=== PATIENT | male | born 1940 | race Caucasian/White ===

== ENCOUNTER 2019-03-30 07:51 | Outpatient (CLI) | payer MEDICARE | END 2019-03-30 23:59 | disposition home or self-care (01) | LOC: CFH 07:51 | PROVIDERS: ATTEND Internal Medicine | DX: J47.9 Bronchiectasis, uncomplicated (principal); R91.8 Other nonspecific abnormal finding of lung field | CPT/HCPCS: 71250 ==

== ENCOUNTER → 2019-08-25 | Outpatient (CLI) | payer MEDICARE | END | disposition home or self-care (01) | LOC: RAD 10:55 | PROVIDERS: ATTEND Urology | DX: C61 Malignant neoplasm of prostate (principal) | CPT/HCPCS: 78306; A9503 ==

== ENCOUNTER → 2019-10-19 | Outpatient (CLI) | payer MEDICARE ==
[~2019-10-19] MED LIST: GADOTERATE 7.5 MMOL/15 ML SYR ONE
== END | disposition home or self-care (01) ==
LOC: CFH 09:28
PROVIDERS: ATTEND Urology
DX: C79.51 Secondary malignant neoplasm of bone (principal); M53.85 Other specified dorsopathies, thoracolumbar region; D18.09 Hemangioma of other sites
CPT/HCPCS: 72157; 72158; A9575

== ENCOUNTER → 2020-05-22 | Outpatient (CLI) | payer MEDICARE | END | disposition home or self-care (01) | LOC: CFH 09:11 | PROVIDERS: ATTEND Internal Medicine | DX: J47.9 Bronchiectasis, uncomplicated (principal); C61 Malignant neoplasm of prostate; N18.3 Chronic kidney disease, stage 3 (moderate) | CPT/HCPCS: 71250 ==

== ENCOUNTER → 2020-08-30 | Outpatient (CLI) | payer MEDICARE ==
[~2020-08-30] MED LIST changes: -GADOTERATE 7.5 MMOL/15 ML SYR ONE; +OMNIPAQUE 350 MG/ML, 100ML BOTTLE ONE
== END | disposition home or self-care (01) ==
LOC: RAD 07:50
PROVIDERS: ATTEND Urology
DX: C61 Malignant neoplasm of prostate (principal)
CPT/HCPCS: 74177; 78306; A9503; Q9967

== ENCOUNTER 2020-12-21 15:05 | Outpatient (CLI) | payer MEDICARE | END 2020-12-21 23:59 | disposition home or self-care (01) | LOC: CFH 15:05 | PROVIDERS: ATTEND Internal Medicine | DX: M79.661 Pain in right lower leg (principal); M79.662 Pain in left lower leg; R60.0 Localized edema | CPT/HCPCS: 93970 ==

== ENCOUNTER 2021-02-06 14:54 | Inpatient (IN) | payer MEDICARE ==
[~2021-02-06] VITALS: Ht 167.6 cm; Wt 78.0 kg
[2021-02-06] MEDS ORDERED: ASPIRIN 81 MG TABLET CHEW ONE (15:10)
[2021-02-06] MEDS ORDERED: ASPIRIN 81 MG TABLET CHEW PO ONE (15:30)
--- NOTE | 2021-02-06 15:31 | NUR ---
PT BROUGHT BACK TO ROOM FROM TRIAGE VIA WHEELCHAIR. PT CO SOB AND CP STARTING THIS MORNING AROUND 1100. PT STATED THAT HE HAS HAD INTERMITTENT SOB SINCE RECEIVING HIS COVID VACCINATION IN OCTOBER. PT STATED THAT CP IS 4/10. PT HAS OCCASIONAL COUGH, WHICH PT STATED IS BASELINE FOR HIM. PT DENIES ANY FEVER OR N/V.
[2021-02-06 15:41] LABS: ALANINE AMINOTRANSFERASE 20 U/L (12-78); ALBUMIN 3.9 g/dL (3.4-5.0); ANION GAP 8 mmol/L (5-15); CALCIUM 9.6 mg/dL (8.5-10.1); CHLORIDE 105 mmol/L (98-107); CREATININE 1.37 mg/dL (0.7-1.3)
[2021-02-06 15:44] LABS: MEAN CORPUSCULAR HEMOGLOBIN 29.9 pg (27.5-34.5); MEAN CORPUSCULAR HGB CONC 32.9 g/dL (33.2-36.2); MEAN PLATELET VOLUME 9.7 fL (7.4-10.4); PLATELET COUNT 319 x10^3/uL (130-400); RED CELL DISTRIBUTION WIDTH 13.9 % (9.4-14.8)
[2021-02-06 15:45] LABS: ALKALINE PHOSPHATASE 132 U/L (45-117); BILIRUBIN,TOTAL 0.7 mg/dL (0.2-1.0); TOTAL PROTEIN 7.8 g/dL (6.4-8.2); TROPONIN I < 0.015 ng/mL (0.000-0.045)
[2021-02-06 16:05] LABS: MD YES
--- NOTE | 2021-02-06 16:26 | NUR ---
PT RESTING IN RTULE[place] COMFORTABLY. CALL LIGHT WITHIN REACH.
[2021-02-06 16:28] LABS: BAND#(MANUAL) 0.34 x10^3/uL; BANDS%(MANUAL) 1 % (0-7); LYMPH#(MANUAL) 27.62 x10^3/uL (1-3.4); LYMPHS% (MANUAL) 81 % (22-44); MONOS#(MANUAL) 0.68 x10^3/uL (0.3-2.7); MONOS% (MANUAL) 2 % (2-9); SEG#(MANUAL) 5.46 x10^3/uL (1.8-6.8); SEGS% (MANUAL) 16 % (42-75)
[2021-02-06 16:29] LABS: <RBC MORPHOLOGY> NORMAL
[2021-02-06 16:30] LABS: <PLATELET ESTIMATE> ADEQUATE; <PLT MORPHOLOGY> NORMAL PLT MORPH; SMUDGE CELLS 1+
--- NOTE | 2021-02-06 17:17 | NUR ---
spoke with regarding pt request for food. md katerine hicks diet for pt. meal tray ordered.
[2021-02-06] MEDS ORDERED: SODIUM CHLORIDE FLUSH 10ML SYR IVF PRN (17:30)
--- NOTE | 2021-02-06 18:01 | NUR ---
PT SITTING IN [facility]. ATTEMPT TO CALL REPORT TO RN X1.
--- NOTE | 2021-02-06 18:26 | NUR ---
REPORT GIVEN TO MATTHEW GUZMAN.
[2021-02-06] MEDS ORDERED: BISACODYL 10 MG SUPP PR PRN (18:30)
[2021-02-06] MEDS ORDERED: POLYETHYLENE GLYCOL 17 GM PACKET PO PRN (18:30)
[2021-02-06] MEDS ORDERED: VANCOMYCIN PER PHARMACY MC PRN (18:30)
[2021-02-06] MEDS ORDERED: PHARMACOKINETIC MONITORING MC PRN (18:30)
[2021-02-06] MEDS ORDERED: ONDANSETRON ODT 4 MG PO PRN (18:30)
[2021-02-06] MEDS ORDERED: ALBUTEROL/IPRATROPIUM 2.5MG/0.5MG, 3 ML NPPB PRN (19:00)
--- NOTE | 2021-02-06 19:22 | NUR ---
PT TRANSFERRED TO ONCOLOGY BY [facility]
[2021-02-06 19:30] VITALS: BP 105/65
[2021-02-06 20:02] VITALS: BP 105/65
[2021-02-06] MEDS ORDERED: ESOM20CA57 PO (20:31)
[2021-02-06] MEDS ORDERED: FLUT1BLS3 IH (20:31)
[2021-02-06] MEDS ORDERED: LEUP3.75 IM (20:31)
[2021-02-06] MEDS ORDERED: ENZA40CA PO (20:31)
[2021-02-06] MEDS ORDERED: OXYC1TAB14 PO (20:38)
[2021-02-06] MEDS ORDERED: A/C/1TAB PO (20:38)
[2021-02-06] MEDS ORDERED: CALC-709 PO (20:38)
[2021-02-06] MEDS ORDERED: CETI10CA PO (20:38)
[2021-02-06] MEDS ORDERED: TAMS-11 PO (20:38)
[2021-02-06] MEDS ORDERED: DENO120V SQ (20:43)
[2021-02-06] MEDS ORDERED: VANCOMYCIN 1,500 MG in SODIUM CHLORIDE 0.9% 250 ML IV SCH (21:00)
[2021-02-06 21:15] VITALS: BP 115/68
[2021-02-06] MEDS: CEFTRIAXONE 1,000 MG in DEXTROSE 5% 50 ML IVPB SCH (21:27)
[2021-02-06] MEDS: HEPARIN 5,000 UNITS/ML, 1ML SQ SCH (21:27)
[2021-02-07 00:38] VITALS: BP 114/62
[2021-02-07] MEDS: HEPARIN 5,000 UNITS/ML, 1ML SQ SCH ×3 (05:15→20:01)
[2021-02-07] MEDS: ACETAMINOPHEN 325 MG TABLET PO PRN ×3 (05:20→20:01)
[2021-02-07 05:28] LABS: MEAN CORPUSCULAR HEMOGLOBIN 29.9 pg (27.5-34.5); MEAN CORPUSCULAR HGB CONC 33.1 g/dL (33.2-36.2); MEAN PLATELET VOLUME 9.1 fL (7.4-10.4); PLATELET COUNT 283 x10^3/uL (130-400); RED BLOOD COUNT 4.88 x10^6/uL (4.38-5.82); RED CELL DISTRIBUTION WIDTH 13.9 % (9.4-14.8)
[2021-02-07 05:46] LABS: CHLORIDE 106 mmol/L (98-107)
[2021-02-07 05:59] LABS: MD YES
[2021-02-07 06:01] LABS: <PLATELET ESTIMATE> ADEQUATE; <PLT MORPHOLOGY> NORMAL PLT MORPH; <RBC MORPHOLOGY> NORMAL; BAND#(MANUAL) 0.26 x10^3/uL; BANDS%(MANUAL) 1 % (0-7); LYMPH#(MANUAL) 19.65 x10^3/uL (1-3.4); LYMPHS% (MANUAL) 75 % (22-44); MONOS#(MANUAL) 0.26 x10^3/uL (0.3-2.7); MONOS% (MANUAL) 1 % (2-9); SEG#(MANUAL) 6.03 x10^3/uL (1.8-6.8); SEGS% (MANUAL) 23 % (42-75); SMUDGE CELLS 1+
[2021-02-07 06:02] LABS: ANION GAP 5 mmol/L (5-15); CALCIUM 8.8 mg/dL (8.5-10.1); CREATININE 1.47 mg/dL (0.7-1.3)
[2021-02-07 07:39] VITALS: BP 130/72
[2021-02-07] MEDS: SENNA/DOCUSATE TABLET PO SCH (08:43)
[2021-02-07] MEDS: BUDESONIDE 0.5 MG/2 ML INHA INH SCH ×2 (09:00→20:55)
[2021-02-07] MEDS: ALBUTEROL/IPRATROPIUM 2.5MG/0.5MG, 3 ML NPPB SCH ×2 (09:00→20:55)
[2021-02-07 12:55] VITALS: BP 117/68
[2021-02-07] MEDS: SODIUM CHLORIDE 0.9% 1,000 ML IV SCH (18:42)
[2021-02-07] MEDS: CEFTRIAXONE 1,000 MG in DEXTROSE 5% 50 ML IVPB SCH (21:01)
[2021-02-07] MEDS: VANCOMYCIN 1,600 MG in SODIUM CHLORIDE 0.9% 250 ML IV SCH (22:10)
[2021-02-08] MEDS: ACETAMINOPHEN 325 MG TABLET PO PRN ×4 (01:28→19:40)
[2021-02-08 01:51] VITALS: BP 127/72
[2021-02-08 05:19] LABS: MEAN CORPUSCULAR HEMOGLOBIN 30.1 pg (27.5-34.5); MEAN CORPUSCULAR HGB CONC 33.2 g/dL (33.2-36.2); MEAN PLATELET VOLUME 9.7 fL (7.4-10.4); PLATELET COUNT 249 x10^3/uL (130-400); RED CELL DISTRIBUTION WIDTH 14.1 % (9.4-14.8)
[2021-02-08 05:27] LABS: CHLORIDE 111 mmol/L (98-107)
[2021-02-08] MEDS: HEPARIN 5,000 UNITS/ML, 1ML SQ SCH ×3 (05:32→20:30)
[2021-02-08 05:33] LABS: ANION GAP 9 mmol/L (5-15); CALCIUM 7.9 mg/dL (8.5-10.1); CREATININE 0.96 mg/dL (0.7-1.3)
[2021-02-08 05:59] LABS: MD YES
[2021-02-08 06:16] LABS: BAND#(MANUAL) 0.26 x10^3/uL; BANDS%(MANUAL) 1 % (0-7); EOS#(MANUAL) 0.26 x10^3/uL (0.0-0.4); EOS% (MANUAL) 1 % (1-7); LYMPH#(MANUAL) 19.79 x10^3/uL (1-3.4); LYMPHS% (MANUAL) 77 % (22-44); MONOS#(MANUAL) 1.54 x10^3/uL (0.3-2.7); MONOS% (MANUAL) 6 % (2-9); SEG#(MANUAL) 3.86 x10^3/uL (1.8-6.8)
[2021-02-08 06:17] LABS: <RBC MORPHOLOGY> NORMAL; SEGS% (MANUAL) 15 % (42-75)
[2021-02-08 06:18] LABS: <PLATELET ESTIMATE> ADEQUATE; <PLT MORPHOLOGY> NORMAL PLT MORPH; SMUDGE CELLS 2+
[2021-02-08 07:03] VITALS: BP 128/89
[2021-02-08] MEDS: BUDESONIDE 0.5 MG/2 ML INHA INH SCH ×2 (07:33→20:56)
[2021-02-08] MEDS: ALBUTEROL/IPRATROPIUM 2.5MG/0.5MG, 3 ML NPPB SCH ×2 (07:33→20:56)
[2021-02-08] MEDS: SENNA/DOCUSATE TABLET PO SCH ×2 (08:52→17:50)
[2021-02-08] MEDS ORDERED: XTANDI 160 MG PO SCH ×2 (11:00→11:09)
[2021-02-08 12:22] VITALS: BP 125/69
[2021-02-08] MEDS: SODIUM CHLORIDE 0.9% 1,000 ML IV SCH (13:39)
[2021-02-08] MEDS: CEFTRIAXONE 1,000 MG in DEXTROSE 5% 50 ML IVPB SCH (20:31)
[2021-02-08 21:12] VITALS: BP 125/66
[2021-02-08] MEDS: VANCOMYCIN 1,600 MG in SODIUM CHLORIDE 0.9% 250 ML IV SCH (22:09)
[2021-02-09 01:38] VITALS: BP 136/72
[2021-02-09] MEDS: HEPARIN 5,000 UNITS/ML, 1ML SQ SCH ×2 (05:20→12:50)
[2021-02-09] MEDS: ACETAMINOPHEN 325 MG TABLET PO PRN ×2 (05:20→09:40)
[2021-02-09 05:55] LABS: MEAN CORPUSCULAR HEMOGLOBIN 29.9 pg (27.5-34.5); MEAN CORPUSCULAR HGB CONC 32.9 g/dL (33.2-36.2); MEAN PLATELET VOLUME 9.2 fL (7.4-10.4); PLATELET COUNT 276 x10^3/uL (130-400); RED BLOOD COUNT 4.78 x10^6/uL (4.38-5.82); RED CELL DISTRIBUTION WIDTH 14.2 % (9.4-14.8)
[2021-02-09 06:00] LABS: ANION GAP 5 mmol/L (5-15); CALCIUM 7.7 mg/dL (8.5-10.1); CHLORIDE 112 mmol/L (98-107); CREATININE 0.94 mg/dL (0.7-1.3)
[2021-02-09 06:19] LABS: MD YES
[2021-02-09] MEDS: ALBUTEROL/IPRATROPIUM 2.5MG/0.5MG, 3 ML NPPB SCH (06:50)
[2021-02-09] MEDS: BUDESONIDE 0.5 MG/2 ML INHA INH SCH (06:50)
[2021-02-09 07:03] LABS: BAND#(MANUAL) 0.49 x10^3/uL; BANDS%(MANUAL) 2 % (0-7); BASOS#(MANUAL) 0.24 x10^3/uL (0-0.1); BASOS% (MANUAL) 1 % (0-1); LYMPH#(MANUAL) 19.68 x10^3/uL (1-3.4); LYMPHS% (MANUAL) 81 % (22-44); MONOS#(MANUAL) 0.97 x10^3/uL (0.3-2.7); MONOS% (MANUAL) 4 % (2-9); SEG#(MANUAL) 2.92 x10^3/uL (1.8-6.8); SEGS% (MANUAL) 12 % (42-75)
[2021-02-09 07:10] LABS: <PLATELET ESTIMATE> ADEQUATE; <PLT MORPHOLOGY> NORMAL PLT MORPH; <RBC MORPHOLOGY> NORMAL
[2021-02-09 07:40] VITALS: BP 152/72
[2021-02-09] MEDS: SENNA/DOCUSATE TABLET PO SCH (09:40)
[2021-02-09] MEDS ORDERED: DOXY100T PO (12:23)
[2021-02-09] MEDS ORDERED: CEFD300C37 PO (12:23)
[2021-02-09] MEDS ORDERED: LACT1CAP35 PO (12:25)
[2021-02-09 12:40] VITALS: BP 145/64
== END 2021-02-09 14:00 | disposition home or self-care (01) | DRG 194 ==
LOC: ED 15:37 → EDIP 17:17 → 4NW 19:28 → 4EST 02-07 17:05 → DCLOUNGE 02-09 13:58
PROVIDERS: ADMIT Internal Medicine; ATTEND Internal Medicine
DX: J15.9 Unspecified bacterial pneumonia (principal); C91.11 Chronic lymphocytic leukemia of B-cell type in remission; J44.0 Chronic obstructive pulmonary disease with (acute) lower respiratory infection; Z66 Do not resuscitate; K21.9 Gastro-esophageal reflux disease without esophagitis; R00.1 Bradycardia, unspecified; Z80.1 Family history of malignant neoplasm of trachea, bronchus and lung; Z85.46 Personal history of malignant neoplasm of prostate; Z87.891 Personal history of nicotine dependence; Z88.0 Allergy status to penicillin; N28.9 Disorder of kidney and ureter, unspecified
CPT/HCPCS: 36415; 71045; 80048; 80053; 80202; 83735; 83880; 84100; 84145; 84443; 84484; 85025; 87040; 87070; 87077; 87186; 87205; 93005; 93306; 94640; 99285; G0378; J0696; J1644; J3370; J7626; J7030; J7050

== ENCOUNTER 2021-02-24 08:23 | Inpatient (IN) | payer MEDICARE ==
[~2021-02-24] VITALS: Ht 167.6 cm; Wt 78.3 kg
[~2021-02-24 08:23] MED LIST changes: +A/C/1TAB PO; +CALC-709 PO; +CEFD300C37 PO; +CETI10CA PO; +DENO120V SQ; +DOXY100T PO; +ENZA40CA PO; +ESOM20CA57 PO; +FLUT1BLS3 IH; +LACT1CAP35 PO; +LEUP3.75 IM; -OMNIPAQUE 350 MG/ML, 100ML BOTTLE ONE; +OXYC1TAB14 PO; +TAMS-11 PO
--- NOTE | 2021-02-24 08:31 | NUR ---
ERMD AT BEDSIDE FOR EVALUATION.
--- NOTE | 2021-02-24 08:38 | NUR ---
PATIENT BIB EMS WITH CHIEF C/O N/V/D X3 DAYS. PER EMS PATIENT WAS SEEN 2 WEEKS AGO FOR THE SAME ISSUE. 20 GAUGE IV STARTED RIGHT AC EN ROUTE, 4 MG ZOFRAN AND 100 mLS GIVEN PRIOR TO ARRIVAL. VSS EN ROUTE. UPON ASSESSMENT PATIENT C/O LOWER ABD PAIN, STATES "I'VE FELT WEAK SINCE MY SECOND COVID VACCINE IN OCTOBER." REPORTS INTERMITTENT N/V, BUT HAS GOTTEN WORSE IN THE LAST FEW DAYS, ALONG WITH INCREASING WEAKNESS. CONNECTED TO MONITOR, VSSJAMIE, CALL LIGHT WITHIN REACH.
[2021-02-24] MEDS ORDERED: SODIUM CHLORIDE FLUSH 10ML SYR IVF ONE (09:00)
[2021-02-24] MEDS ORDERED: SODIUM CHLORIDE 0.9% 1,000ML IVBOLUS ONE (09:00)
[2021-02-24 09:09] LABS: ALANINE AMINOTRANSFERASE 19 U/L (12-78); ALBUMIN 3.2 g/dL (3.4-5.0); ANION GAP 7 mmol/L (5-15); CALCIUM 8.5 mg/dL (8.5-10.1); CHLORIDE 105 mmol/L (98-107); MEAN CORPUSCULAR HEMOGLOBIN 29.9 pg (27.5-34.5); MEAN CORPUSCULAR HGB CONC 33.3 g/dL (33.2-36.2); MEAN PLATELET VOLUME 9.2 fL (7.4-10.4); PLATELET COUNT 306 x10^3/uL (130-400); RED BLOOD COUNT 4.92 x10^6/uL (4.38-5.82); RED CELL DISTRIBUTION WIDTH 14.9 % (9.4-14.8)
[2021-02-24 09:14] LABS: ALKALINE PHOSPHATASE 117 U/L (45-117); BILIRUBIN,TOTAL 0.6 mg/dL (0.2-1.0); CREATININE 0.95 mg/dL (0.7-1.3); TOTAL PROTEIN 6.8 g/dL (6.4-8.2); TROPONIN I < 0.015 ng/mL (0.000-0.045)
[2021-02-24 09:36] LABS: LYMPH#(MANUAL) 26.06 x10^3/uL (1-3.4); LYMPHS% (MANUAL) 83 % (22-44); MONOS#(MANUAL) 1.26 x10^3/uL (0.3-2.7); MONOS% (MANUAL) 4 % (2-9); SEG#(MANUAL) 4.08 x10^3/uL (1.8-6.8); SEGS% (MANUAL) 13 % (42-75)
[2021-02-24 09:37] LABS: <PLATELET ESTIMATE> ADEQUATE; <PLT MORPHOLOGY> NORMAL PLT MORPH; <RBC MORPHOLOGY> NORMAL; SMUDGE CELLS 1+
--- NOTE | 2021-02-24 09:53 | NUR ---
UA COLLECTED VIA STRAIGHT CATH, PATIENT TOLERATED WITHOUT DIFFICULTY, URINE SENT TO LAB, NADN, VSS, CALL LIGHT WITHIN REACH.
[2021-02-24 10:15] LABS: MICROSCOPIC NOT IND
[2021-02-24] MEDS ORDERED: HYDROcodone/APAP 5/325 TABLET ONE (10:49)
--- NOTE | 2021-02-24 10:52 | NUR ---
PATIENT MEDICATED PER eMAR, CONNECTED TO MONITOR, VSS, BROTHER AT BEDSIDE, REQUESTING NAUSEA MEDICATION, NOTIFIED ERMD, CALL LIGHT WITHIN REACH.
[2021-02-24] MEDS ORDERED: HYDR25TA6 PO (10:57)
[2021-02-24] MEDS ORDERED: ACID1TAB7 PO (10:57)
--- NOTE | 2021-02-24 10:57 | NUR ---
MED REC COMPLETED.
[2021-02-24] MEDS ORDERED: HYDROcodone/APAP 5/325 TABLET PO ONE (11:00)
[2021-02-24] MEDS ORDERED: ONDANSETRON 2MG/ML, 2ML ONE (11:17)
--- NOTE | 2021-02-24 11:20 | NUR ---
PATIENT MEDICATED FOR NAUSEA WITH 4 MG ZOFRAN IV, REPORTS PAIN LEVEL IS 5/10, VSS, CALL LIGHT WITHIN REACH, NO FURTHER NEEDS AT THIS TIME. WAITING FOR BED ASSIGNMENT UPSTAIRS.
[2021-02-24] MEDS ORDERED: ONDANSETRON 2MG/ML, 2ML IVPush ONE (11:30)
--- NOTE | 2021-02-24 11:46 | NUR ---
REPORT GIVEN TO MATTHEW HAM FOR TRANSFER OF PATIENT CARE.
--- NOTE | 2021-02-24 11:54 | NUR ---
PATIENT TRANSFERRED TO ONCOLOGY FLOOR IN STABLE CONDITION, VIA GURNEY WITH UNIT MANAGER. ALL PATIENT BELONGINGS PLACED IN BAG AND TAKEN TO FLOOR WITH PATIENT.
[2021-02-24] MEDS ORDERED: POLYETHYLENE GLYCOL 17 GM PACKET PO PRN (12:00)
[2021-02-24] MEDS ORDERED: DOCUSATE 100 MG CAPSULE PO PRN (12:00)
[2021-02-24] MEDS ORDERED: BISACODYL 10 MG SUPP PR PRN (12:00)
[2021-02-24] MEDS ORDERED: PROMETHAZINE 25 MG/ML, 1ML IM PRN (13:30)
[2021-02-24] MEDS ORDERED: OMNIPAQUE 350 MG/ML, 100ML BOTTLE ONE (14:27)
[2021-02-24 14:39] VITALS: BP 140/78
[2021-02-24] MEDS: LACTOBACILLUS CHEW TABLET PO SCH ×2 (16:59→21:32)
[2021-02-24] MEDS: ENOXAPARIN 40 MG/0.4 ML SQ SCH (17:02)
[2021-02-24] MEDS: ACETAMINOPHEN 325 MG TABLET PO PRN ×2 (17:22→21:32)
[2021-02-24 19:31] VITALS: BP 115/74
[2021-02-24 19:38] VITALS: BP 143/75
[2021-02-24] MEDS: ONDANSETRON 2MG/ML, 2ML IVPush PRN (21:32)
[2021-02-24] MEDS ORDERED: CETI10CA PO (23:45)
[2021-02-24] MEDS ORDERED: ESOM20CA PO (23:46)
[2021-02-25 03:10] VITALS: BP 166/90
[2021-02-25] MEDS: ACETAMINOPHEN 325 MG TABLET PO PRN ×2 (03:16→19:52)
[2021-02-25 05:12] LABS: MEAN CORPUSCULAR HGB CONC 33.1 g/dL (33.2-36.2); MEAN PLATELET VOLUME 9.2 fL (7.4-10.4); PLATELET COUNT 289 x10^3/uL (130-400); RED BLOOD COUNT 4.57 x10^6/uL (4.38-5.82); RED CELL DISTRIBUTION WIDTH 14.6 % (9.4-14.8)
[2021-02-25 05:16] LABS: ALANINE AMINOTRANSFERASE 17 U/L (12-78); ALBUMIN 2.8 g/dL (3.4-5.0); ANION GAP 5 mmol/L (5-15); CALCIUM 7.9 mg/dL (8.5-10.1); CHLORIDE 109 mmol/L (98-107); CREATININE 0.94 mg/dL (0.7-1.3)
[2021-02-25 05:19] LABS: ALKALINE PHOSPHATASE 100 U/L (45-117); BILIRUBIN,TOTAL 0.5 mg/dL (0.2-1.0); TOTAL PROTEIN 5.9 g/dL (6.4-8.2)
[2021-02-25 05:53] LABS: LYMPH#(MANUAL) 22.44 x10^3/uL (1-3.4); LYMPHS% (MANUAL) 81 % (22-44); MONOS#(MANUAL) 1.39 x10^3/uL (0.3-2.7); MONOS% (MANUAL) 5 % (2-9); SEG#(MANUAL) 3.88 x10^3/uL (1.8-6.8)
[2021-02-25 05:55] LABS: <PLATELET ESTIMATE> ADEQUATE; <PLT MORPHOLOGY> NORMAL PLT MORPH; <RBC MORPHOLOGY> NORMAL; SMUDGE CELLS 1+
[2021-02-25 05:56] LABS: SEGS% (MANUAL) 14 % (42-75)
[2021-02-25 06:52] VITALS: BP 152/82
[2021-02-25] MEDS ORDERED: HYDROCHLOROTHIAZIDE 25 MG TABLET PO SCH (09:00)
[2021-02-25] MEDS: LACTOBACILLUS CHEW TABLET PO SCH (09:01)
[2021-02-25 11:22] LABS: CLOSTRIDIUM DIFFICILE ANTIGEN POSITIVE; CLOSTRIDIUM DIFFICILE TOXIN NEGATIVE (Negative)
[2021-02-25] MEDS: VANCOMYCIN 50 MG/ML ORAL SUSP PO SCH ×2 (13:45→19:52)
[2021-02-25 14:23] VITALS: BP 123/73
[2021-02-25] MEDS: ENOXAPARIN 40 MG/0.4 ML SQ SCH (16:00)
[2021-02-25 18:51] VITALS: BP 122/76
[2021-02-25] MEDS: ONDANSETRON 2MG/ML, 2ML IVPush PRN (19:51)
[2021-02-26 02:18] VITALS: BP 146/86
[2021-02-26] MEDS: VANCOMYCIN 50 MG/ML ORAL SUSP PO SCH ×4 (02:18→19:33)
[2021-02-26] MEDS: ACETAMINOPHEN 325 MG TABLET PO PRN (04:17)
[2021-02-26] MEDS ORDERED: OXYC-380 PO (04:23)
[2021-02-26 08:38] VITALS: BP 105/62
[2021-02-26 13:20] VITALS: BP 116/77
[2021-02-26] MEDS: ENOXAPARIN 40 MG/0.4 ML SQ SCH (16:22)
[2021-02-26] MEDS: OXYcodone/APAP 5/325MG TABLET PO PRN ×2 (16:26→23:04)
[2021-02-26] MEDS ORDERED: VANC125C11 PO (16:30)
[2021-02-26 18:30] VITALS: BP 124/78
[2021-02-26] MEDS ORDERED: POLYETHYLENE GLYCOL 17 GM PACKET PO PRN (23:30)
[2021-02-26] MEDS ORDERED: DOCUSATE 100 MG CAPSULE PO PRN (23:30)
[2021-02-26] MEDS ORDERED: BISACODYL 10 MG SUPP PR PRN (23:30)
[2021-02-27 01:06] VITALS: BP 129/80
[2021-02-27] MEDS: VANCOMYCIN 50 MG/ML ORAL SUSP PO SCH ×2 (02:13→08:06)
[2021-02-27] MEDS: OXYcodone/APAP 5/325MG TABLET PO PRN ×2 (04:37→11:48)
[2021-02-27 07:37] VITALS: BP 160/72
== END 2021-02-27 12:15 | disposition home health service (06) | DRG 372 ==
LOC: ED 09:05 → EDIP 11:05 → 4NW 12:12
PROVIDERS: ADMIT Hospitalist; ATTEND Internal Medicine
DX: A04.72 Enterocolitis due to Clostridium difficile, not specified as recurrent (principal); C91.10 Chronic lymphocytic leukemia of B-cell type not having achieved remission; C79.51 Secondary malignant neoplasm of bone; E87.1 Hypo-osmolality and hyponatremia; C61 Malignant neoplasm of prostate; E86.0 Dehydration; G89.29 Other chronic pain; J44.9 Chronic obstructive pulmonary disease, unspecified; Z66 Do not resuscitate; K21.9 Gastro-esophageal reflux disease without esophagitis; M54.5 Low back pain; R53.81 Other malaise; R59.9 Enlarged lymph nodes, unspecified; Z88.0 Allergy status to penicillin; Z80.1 Family history of malignant neoplasm of trachea, bronchus and lung; Z85.46 Personal history of malignant neoplasm of prostate; Z87.01 Personal history of pneumonia (recurrent); Z92.21 Personal history of antineoplastic chemotherapy
CPT/HCPCS: 36415; 71045; 74177; 80053; 81003; 83605; 83735; 83880; 84100; 84484; 85025; 87324; 87493; 93005; 96360; G0378; J1650; J2405; J2550; J3370; Q9967; J7030

== ENCOUNTER 2021-03-07 19:19 | Inpatient (IN) | payer MEDICARE ==
[~2021-03-07] VITALS: Ht 167.6 cm; Wt 76.5 kg
[~2021-03-07 19:19] MED LIST changes: +ACID1TAB7 PO; +ESOM20CA PO; +HYDR25TA6 PO; +OXYC-380 PO; +VANC125C11 PO
[2021-03-07] MEDS ORDERED: SODIUM CHLORIDE FLUSH 10ML SYR IVF ONE (20:00)
[2021-03-07 20:17] LABS: MEAN CORPUSCULAR HEMOGLOBIN 29.4 pg (27.5-34.5); MEAN CORPUSCULAR HGB CONC 32.5 g/dL (33.2-36.2); MEAN PLATELET VOLUME 8.8 fL (7.4-10.4); PLATELET COUNT 396 x10^3/uL (130-400); RED BLOOD COUNT 5.21 x10^6/uL (4.38-5.82); RED CELL DISTRIBUTION WIDTH 14.6 % (9.4-14.8)
[2021-03-07 20:27] LABS: ALANINE AMINOTRANSFERASE 21 U/L (12-78); ALBUMIN 3.6 g/dL (3.4-5.0); ANION GAP 9 mmol/L (5-15); CALCIUM 10.7 mg/dL (8.5-10.1); CHLORIDE 101 mmol/L (98-107); CREATININE 1.14 mg/dL (0.7-1.3)
[2021-03-07 20:30] LABS: ALKALINE PHOSPHATASE 120 U/L (45-117); BILIRUBIN,TOTAL 0.7 mg/dL (0.2-1.0); TOTAL PROTEIN 7.5 g/dL (6.4-8.2)
[2021-03-07 20:39] LABS: EOS#(MANUAL) 0.42 x10^3/uL (0.0-0.4); EOS% (MANUAL) 1 % (1-7); LYMPH#(MANUAL) 33.36 x10^3/uL (1-3.4); LYMPHS% (MANUAL) 80 % (22-44); MONOS#(MANUAL) 1.25 x10^3/uL (0.3-2.7); MONOS% (MANUAL) 3 % (2-9); SEG#(MANUAL) 6.67 x10^3/uL (1.8-6.8); SEGS% (MANUAL) 16 % (42-75)
[2021-03-07 20:40] LABS: <PLATELET ESTIMATE> ADEQUATE; <PLT MORPHOLOGY> NORMAL PLT MORPH
[2021-03-07 20:41] LABS: ANISOCYTOSIS 1+; MICROCYTOSIS 1+
[2021-03-07] MEDS ORDERED: SODIUM CHLORIDE 0.9% 1,000ML IVBOLUS ONE (21:30)
[2021-03-07] MEDS ORDERED: ONDANSETRON 2MG/ML, 2ML IVPush ONE (21:30)
[2021-03-07] MEDS ORDERED: ONDANSETRON 2MG/ML, 2ML ONE (21:37)
[2021-03-07] MEDS ORDERED: OMNIPAQUE 350 MG/ML, 100ML BOTTLE ONE (22:11)
[2021-03-07 22:14] LABS: TROPONIN I < 0.015 ng/mL (0.000-0.045)
[2021-03-07 22:27] LABS: MICROSCOPIC NOT IND
[2021-03-07] MEDS ORDERED: AZITHROMYCIN 500 MG in SODIUM CHLORIDE 0.9% 250 ML IV ONE (23:00)
[2021-03-07] MEDS ORDERED: PROMETHAZINE 25 MG/ML, 1ML IM ONE (23:00)
[2021-03-07] MEDS ORDERED: CEFTRIAXONE 1,000 MG in DEXTROSE 5% 50 ML IVPB ONE (23:00)
--- NOTE | 2021-03-07 23:26 | NUR ---
report given to esperanza del valle
[2021-03-07] MEDS ORDERED: lupron (23:53)
[2021-03-07] MEDS ORDERED: DENO120V SQ (23:55)
[2021-03-07 23:57] VITALS: BP 155/76
[2021-03-08] MEDS ORDERED: FLUT1BLS3 IH (00:25)
[2021-03-08] MEDS ORDERED: CEFTRIAXONE 1,000 MG in DEXTROSE 5% 50 ML IVPB SCH (01:00)
[2021-03-08] MEDS ORDERED: LACTATED RINGERS 1,000 ML IV SCH ×2 (01:00→21:00)
[2021-03-08] MEDS ORDERED: ENALAPRILAT 1.25 MG/ML, 2ML IVPush PRN (01:00)
[2021-03-08] MEDS ORDERED: MELATONIN 5 MG TABLET PO PRN (01:00)
[2021-03-08] MEDS ORDERED: morphine SULFATE 10 MG/ML, 1ML IVPush PRN (01:00)
[2021-03-08] MEDS ORDERED: AZITHROMYCIN 500 MG in SODIUM CHLORIDE 0.9% 250 ML IV SCH (01:00)
[2021-03-08] MEDS ORDERED: PROMETHAZINE 25 MG/ML, 1ML IM PRN (01:00)
[2021-03-08] MEDS ORDERED: CETIRIZINE 10 MG TABLET PO PRN (01:00)
[2021-03-08] MEDS: VANCOMYCIN 50 MG/ML ORAL SUSP PO SCH ×4 (01:28→20:25)
[2021-03-08 04:00] VITALS: BP 126/62
[2021-03-08 07:06] VITALS: BP 110/72
[2021-03-08] MEDS: ACETAMINOPHEN 325 MG TABLET PO PRN ×2 (07:27→20:28)
[2021-03-08] MEDS: SENNA/DOCUSATE TABLET PO SCH (08:58)
[2021-03-08] MEDS: ALBUTEROL/IPRATROPIUM 2.5MG/0.5MG, 3 ML HHN SCH ×2 (09:00→20:09)
[2021-03-08] MEDS: BUDESONIDE 0.5 MG/2 ML INHA INH SCH ×2 (09:00→20:09)
[2021-03-08] MEDS ORDERED: TEMPLATE NON-FORMULARY MED. (Fluticasone/Umeclidin/Vilanter (Trelegy Ellipta 100-62.5-25 HOMEINH SCH (09:00)
[2021-03-08] MEDS: ONDANSETRON 2MG/ML, 2ML IVPush PRN ×2 (11:11→20:28)
[2021-03-08 13:54] VITALS: BP 101/66
[2021-03-08] MEDS: GUAIFENESIN ER 600 MG TABLET PO SCH ×2 (14:20→20:28)
[2021-03-08 20:33] VITALS: BP 114/69
[2021-03-09 02:13] VITALS: BP 110/75
[2021-03-09] MEDS: VANCOMYCIN 50 MG/ML ORAL SUSP PO SCH ×3 (02:17→14:14)
[2021-03-09] MEDS: BUDESONIDE 0.5 MG/2 ML INHA INH SCH ×2 (06:28→18:45)
[2021-03-09] MEDS: ALBUTEROL/IPRATROPIUM 2.5MG/0.5MG, 3 ML HHN SCH ×2 (06:28→18:45)
[2021-03-09] MEDS: ACETAMINOPHEN 325 MG TABLET PO PRN ×3 (07:07→18:44)
[2021-03-09 07:26] VITALS: BP 120/74
[2021-03-09] MEDS: SENNA/DOCUSATE TABLET PO SCH (08:05)
[2021-03-09] MEDS: GUAIFENESIN ER 600 MG TABLET PO SCH ×2 (08:05→20:43)
[2021-03-09 12:33] VITALS: BP 112/71
[2021-03-09 19:33] VITALS: BP 109/62
[2021-03-09] MEDS: LACTOBACILLUS CHEW TABLET PO SCH (20:43)
[2021-03-10 00:08] VITALS: BP 129/78
[2021-03-10] MEDS: OXYcodone/APAP 10/325MG TABLET PO PRN ×2 (04:16→11:52)
[2021-03-10] MEDS: BUDESONIDE 0.5 MG/2 ML INHA INH SCH (07:47)
[2021-03-10 08:00] VITALS: BP 130/70
[2021-03-10] MEDS ORDERED: ALBUTEROL/IPRATROPIUM 2.5MG/0.5MG, 3 ML HHN PRN (08:00)
[2021-03-10] MEDS: LACTOBACILLUS CHEW TABLET PO SCH ×2 (09:00→15:36)
[2021-03-10] MEDS: GUAIFENESIN ER 600 MG TABLET PO SCH (09:09)
[2021-03-10] MEDS: SENNA/DOCUSATE TABLET PO SCH (09:10)
[2021-03-10 13:28] VITALS: BP 108/71
[2021-03-10 13:46] VITALS: BP 138/77
[2021-03-10] MEDS ORDERED: LORazepam 2 MG/ML, 1ML IVPush ONE (15:00)
[2021-03-10] MEDS ORDERED: ONDA4TAB7 PO (16:52)
== END 2021-03-10 18:27 | disposition home health service (06) | DRG 722 ==
LOC: ED 21:05 → EDIP 23:02 → 4NW 23:38
PROVIDERS: ADMIT Family Medicine; ATTEND Family Medicine
DX: C61 Malignant neoplasm of prostate (principal); J96.01 Acute respiratory failure with hypoxia; J18.9 Pneumonia, unspecified organism; C77.8 Secondary and unspecified malignant neoplasm of lymph nodes of multiple regions; E87.1 Hypo-osmolality and hyponatremia; A04.72 Enterocolitis due to Clostridium difficile, not specified as recurrent; C79.11 Secondary malignant neoplasm of bladder; J47.0 Bronchiectasis with acute lower respiratory infection; C77.2 Secondary and unspecified malignant neoplasm of intra-abdominal lymph nodes; E86.1 Hypovolemia; G89.29 Other chronic pain; K57.30 Diverticulosis of large intestine without perforation or abscess without bleeding; R11.2 Nausea with vomiting, unspecified; T45.1X5A Adverse effect of antineoplastic and immunosuppressive drugs, initial encounter; K21.9 Gastro-esophageal reflux disease without esophagitis; D63.0 Anemia in neoplastic disease; M54.5 Low back pain; D69.6 Thrombocytopenia, unspecified; D72.820 Lymphocytosis (symptomatic); K80.20 Calculus of gallbladder without cholecystitis without obstruction; Z66 Do not resuscitate; Z80.1 Family history of malignant neoplasm of trachea, bronchus and lung; Z85.46 Personal history of malignant neoplasm of prostate; Z87.891 Personal history of nicotine dependence; Z88.0 Allergy status to penicillin; Z79.899 Other long term (current) drug therapy; Y92.89 Other specified places as the place of occurrence of the external cause; K76.89 Other specified diseases of liver
CPT/HCPCS: 36415; 71045; 74177; 78306; 80053; 81003; 83605; 83690; 83880; 84145; 84153; 84484; 85025; 87040; 93005; 94640; 96361; 96374; 96375; 99285; G0378; J0456; J0696; J2405; J2550; J3370; J7626; Q9967; A9503; C9898; G0103; J2060; J7030; J7050; J7120

== ENCOUNTER 2021-03-17 07:44 | Inpatient (IN) | payer MEDICARE ==
[~2021-03-17] VITALS: Ht 167.6 cm; Wt 73.5 kg
[~2021-03-17 07:44] MED LIST changes: +ONDA4TAB7 PO; -OXYC-380 PO; +OXYC-501 PO; +OXYC1TAB12 PO; -OXYC1TAB14 PO; +lupron
--- NOTE | 2021-03-17 07:46 | NUR ---
modeling analyst: attempted to call pt for triage, pt in BR
--- NOTE | 2021-03-17 07:55 | NUR ---
archery instructor: EKG done in triage
--- NOTE | 2021-03-17 08:28 | NUR ---
pt requested to have oxygen placed. NC 2L placed on pt. daughter supoortive at bedside. vss
[2021-03-17 08:33] LABS: MEAN CORPUSCULAR HEMOGLOBIN 29.7 pg (27.5-34.5); MEAN CORPUSCULAR HGB CONC 32.7 g/dL (33.2-36.2); MEAN PLATELET VOLUME 8.9 fL (7.4-10.4); PLATELET COUNT 396 x10^3/uL (130-400); RED BLOOD COUNT 4.91 x10^6/uL (4.38-5.82); RED CELL DISTRIBUTION WIDTH 14.9 % (9.4-14.8)
[2021-03-17 08:39] LABS: ALANINE AMINOTRANSFERASE 19 U/L (12-78); ALBUMIN 3.8 g/dL (3.4-5.0); ANION GAP 8 mmol/L (5-15); CALCIUM 10.5 mg/dL (8.5-10.1); CHLORIDE 101 mmol/L (98-107); CREATININE 1.22 mg/dL (0.7-1.3)
[2021-03-17 08:41] LABS: ALKALINE PHOSPHATASE 116 U/L (45-117); BILIRUBIN,TOTAL 0.5 mg/dL (0.2-1.0); TOTAL PROTEIN 7.4 g/dL (6.4-8.2)
[2021-03-17 09:06] LABS: MONOS#(MANUAL) 0.73 x10^3/uL (0.3-2.7); MONOS% (MANUAL) 2 % (2-9)
[2021-03-17 09:07] LABS: <PLATELET ESTIMATE> ADEQUATE; <PLT MORPHOLOGY> NORMAL PLT MORPH; <RBC MORPHOLOGY> NORMAL
[2021-03-17 09:09] LABS: SEGS% (MANUAL) 21 % (42-75)
[2021-03-17 09:10] LABS: LYMPH#(MANUAL) 28.18 x10^3/uL (1-3.4); LYMPHS% (MANUAL) 77 % (22-44); SEG#(MANUAL) 7.69 x10^3/uL (1.8-6.8)
[2021-03-17] MEDS ORDERED: DEXAMETHASONE 4 MG/ML, 5ML ONE (09:46)
[2021-03-17] MEDS ORDERED: ALBUTEROL SULFATE 2.5 MG/3 ML ONE (09:46)
--- NOTE | 2021-03-17 09:53 | NUR ---
pt to CT
[2021-03-17] MEDS ORDERED: ALBUTEROL SULFATE 2.5 MG/3 ML NPPB ONE (10:00)
[2021-03-17] MEDS ORDERED: DEXAMETHASONE 4 MG/ML, 1ML IVPush ONE (10:00)
[2021-03-17] MEDS ORDERED: LORazepam 2 MG/ML, 1ML ONE (10:16)
--- NOTE | 2021-03-17 10:21 | NUR ---
spoke w/ pt daughter, she is concerned pt is getting too anxious to sleep and its making his breathing worse. pt agreed and stated he would like something for anxiety. relayed message to THEO
[2021-03-17] MEDS ORDERED: LORazepam 2 MG/ML, 1ML IVPush ONE (10:30)
--- NOTE | 2021-03-17 10:38 | NUR ---
pt states he is not feeling anxious any more and his breathing is improving. states he usually takes percocet 10 q6h, and feels his pain is starting to come on. relayed the message to the PCP
[2021-03-17] MEDS ORDERED: OXYcodone/APAP 10/325MG TABLET ONE (10:40)
[2021-03-17] MEDS ORDERED: CEFTRIAXONE 1,000 MG in DEXTROSE 5% 50 ML IVPB ONE (11:00)
[2021-03-17] MEDS ORDERED: DOXYCYCLINE 100MG TABLET PO ONE (11:00)
[2021-03-17] MEDS ORDERED: DOXYCYCLINE 100MG TABLET ONE (11:16)
[2021-03-17] MEDS ORDERED: LABETALOL 5MG/ML, 20ML IVPush PRN (11:30)
[2021-03-17] MEDS ORDERED: BUTALB/APAP/CAFFEINE 50MG/325MG/40MG PO PRN ×2 (11:30)
[2021-03-17] MEDS ORDERED: GUAIFENESIN/DM 200-20MG, 10ML UDC PO PRN (11:30)
[2021-03-17] MEDS ORDERED: ACETAMINOPHEN 325 MG TABLET PO PRN (11:30)
[2021-03-17] MEDS ORDERED: ONDANSETRON ODT 4 MG PO PRN (11:30)
[2021-03-17] MEDS ORDERED: OXYcodone/APAP 10/325MG TABLET PO ONE (11:30)
[2021-03-17] MEDS ORDERED: ENALAPRILAT 1.25 MG/ML, 2ML IVPush PRN (11:30)
[2021-03-17] MEDS ORDERED: GABAPENTIN 300 MG CAPSULE PO PRN (11:30)
[2021-03-17] MEDS: SENNA/DOCUSATE TABLET PO SCH (12:58)
[2021-03-17] MEDS: ENOXAPARIN 30 MG/0.3 ML SQ SCH (13:01)
[2021-03-17 14:00] VITALS: BP 111/69
[2021-03-17] MEDS ORDERED: ONDANSETRON 4 MG TABLET PO PRN (17:30)
[2021-03-17] MEDS ORDERED: TEMPLATE NON-FORMULARY MED. (Cetirizine Hcl** (Zyrtec**) 10 MG) PO PRN (17:30)
[2021-03-17 18:35] VITALS: BP 158/71
[2021-03-17] MEDS: OXYcodone/APAP 10/325MG TABLET PO PRN (18:40)
[2021-03-17] MEDS: MELATONIN 5 MG TABLET PO SCH (22:19)
[2021-03-17] MEDS: CHOLECALCIFEROL 400 UNITS TABLET PO SCH (22:24)
[2021-03-17] MEDS: LACTOBACILLUS CHEW TABLET PO SCH (22:25)
[2021-03-17] MEDS: DOXYCYCLINE 100MG TABLET PO SCH (22:25)
[2021-03-17] MEDS: CALCIUM CARBONATE 500 MG TABLET PO SCH (22:25)
[2021-03-18] MEDS: ENOXAPARIN 30 MG/0.3 ML SQ SCH ×2 (01:21→13:05)
[2021-03-18] MEDS: OXYcodone/APAP 10/325MG TABLET PO PRN ×3 (01:25→18:06)
[2021-03-18 01:42] VITALS: BP 118/76
[2021-03-18 05:17] LABS: ANION GAP 6 mmol/L (5-15); CALCIUM 9.6 mg/dL (8.5-10.1); CHLORIDE 104 mmol/L (98-107)
[2021-03-18 05:18] LABS: MEAN CORPUSCULAR HEMOGLOBIN 29.8 pg (27.5-34.5); MEAN CORPUSCULAR HGB CONC 32.6 g/dL (33.2-36.2); MEAN PLATELET VOLUME 8.8 fL (7.4-10.4); PLATELET COUNT 316 x10^3/uL (130-400); RED BLOOD COUNT 4.27 x10^6/uL (4.38-5.82); RED CELL DISTRIBUTION WIDTH 15.2 % (9.4-14.8)
[2021-03-18 06:07] LABS: EOS#(MANUAL) 0.54 x10^3/uL (0.0-0.4); EOS% (MANUAL) 2 % (1-7); LYMPH#(MANUAL) 19.44 x10^3/uL (1-3.4); LYMPHS% (MANUAL) 72 % (22-44); MONOS#(MANUAL) 1.35 x10^3/uL (0.3-2.7); MONOS% (MANUAL) 5 % (2-9); SEG#(MANUAL) 5.67 x10^3/uL (1.8-6.8); SEGS% (MANUAL) 21 % (42-75)
[2021-03-18 06:08] LABS: <PLATELET ESTIMATE> ADEQUATE; <PLT MORPHOLOGY> NORMAL PLT MORPH; ANISOCYTOSIS 1+; SMUDGE CELLS 1+
[2021-03-18 07:53] VITALS: BP 135/76
[2021-03-18] MEDS: CHOLECALCIFEROL 400 UNITS TABLET PO SCH ×2 (08:11→22:38)
[2021-03-18] MEDS: HYDROCHLOROTHIAZIDE 25 MG TABLET PO SCH (08:11)
[2021-03-18] MEDS: SENNA/DOCUSATE TABLET PO SCH (08:12)
[2021-03-18] MEDS: LACTOBACILLUS CHEW TABLET PO SCH ×3 (08:12→22:39)
[2021-03-18] MEDS: DOXYCYCLINE 100MG TABLET PO SCH ×2 (08:12→22:39)
[2021-03-18] MEDS: CALCIUM CARBONATE 500 MG TABLET PO SCH ×2 (08:12→22:39)
[2021-03-18] MEDS: TEMPLATE NON-FORMULARY MED. (Esomeprazole Magnesium** (Nexium**) 20 MG) HOMEMEDPO SCH (08:15)
[2021-03-18] MEDS: TEMPLATE NON-FORMULARY MED. (Fluticasone/Umeclidin/Vilanter (Trelegy Ellipta 100-62.5-25 INH SCH (08:15)
[2021-03-18] MEDS: ONDANSETRON 2MG/ML, 2ML IVPush PRN ×2 (09:42→14:57)
[2021-03-18] MEDS: CEFTRIAXONE 1,000 MG in DEXTROSE 5% 50 ML IVPB SCH (11:27)
[2021-03-18 13:32] VITALS: BP 132/72
[2021-03-18] MEDS ORDERED: LORazepam 2 MG/ML, 1ML IVPush ONE (15:00)
[2021-03-18 19:40] VITALS: BP 126/70
[2021-03-18] MEDS: MELATONIN 5 MG TABLET PO SCH (22:39)
[2021-03-19] MEDS: ENOXAPARIN 30 MG/0.3 ML SQ SCH ×2 (01:25→12:51)
[2021-03-19] MEDS: OXYcodone IR 5MG TABLET PO PRN ×3 (01:26→12:50)
[2021-03-19 01:32] VITALS: BP 127/74
[2021-03-19 05:58] LABS: ANION GAP 3 mmol/L (5-15); CALCIUM 9.4 mg/dL (8.5-10.1); CHLORIDE 103 mmol/L (98-107); CREATININE 1.05 mg/dL (0.7-1.3)
[2021-03-19 06:05] LABS: MEAN CORPUSCULAR HEMOGLOBIN 29.7 pg (27.5-34.5); MEAN CORPUSCULAR HGB CONC 32.2 g/dL (33.2-36.2); MEAN PLATELET VOLUME 8.8 fL (7.4-10.4); PLATELET COUNT 321 x10^3/uL (130-400); RED BLOOD COUNT 4.29 x10^6/uL (4.38-5.82)
[2021-03-19 07:06] LABS: BASOS#(MANUAL) 0.31 x10^3/uL (0-0.1); BASOS% (MANUAL) 1 % (0-1); MONOS#(MANUAL) 0.93 x10^3/uL (0.3-2.7); MONOS% (MANUAL) 3 % (2-9)
[2021-03-19 07:07] LABS: EOS#(MANUAL) 0.31 x10^3/uL (0.0-0.4); EOS% (MANUAL) 1 % (1-7); LYMPH#(MANUAL) 23.33 x10^3/uL (1-3.4); LYMPHS% (MANUAL) 75 % (22-44); SEG#(MANUAL) 6.22 x10^3/uL (1.8-6.8); SEGS% (MANUAL) 20 % (42-75)
[2021-03-19 07:12] LABS: <RBC MORPHOLOGY> NORMAL; SMUDGE CELLS 2+
[2021-03-19 07:13] LABS: <PLATELET ESTIMATE> ADEQUATE; <PLT MORPHOLOGY> NORMAL PLT MORPH
[2021-03-19] MEDS: TEMPLATE NON-FORMULARY MED. (Fluticasone/Umeclidin/Vilanter (Trelegy Ellipta 100-62.5-25 INH SCH (07:40)
[2021-03-19] MEDS: TEMPLATE NON-FORMULARY MED. (Esomeprazole Magnesium** (Nexium**) 20 MG) HOMEMEDPO SCH (07:40)
[2021-03-19] MEDS: DOXYCYCLINE 100MG TABLET PO SCH (07:41)
[2021-03-19] MEDS: SENNA/DOCUSATE TABLET PO SCH (07:41)
[2021-03-19] MEDS: LACTOBACILLUS CHEW TABLET PO SCH (07:41)
[2021-03-19] MEDS: HYDROCHLOROTHIAZIDE 25 MG TABLET PO SCH (07:41)
[2021-03-19] MEDS: CALCIUM CARBONATE 500 MG TABLET PO SCH (07:41)
[2021-03-19] MEDS: CHOLECALCIFEROL 400 UNITS TABLET PO SCH (07:42)
[2021-03-19 07:58] VITALS: BP 148/78
[2021-03-19] MEDS: CEFTRIAXONE 1,000 MG in DEXTROSE 5% 50 ML IVPB SCH (11:07)
[2021-03-19 11:58] VITALS: BP 165/81
[2021-03-19 13:05] VITALS: BP 120/74
== END 2021-03-19 15:42 | disposition hospice, home (50) | DRG 189 ==
LOC: ED 08:44 → EDIP 10:50 → 4NE 12:00
PROVIDERS: ADMIT Family Medicine; ATTEND Family Medicine
DX: J96.01 Acute respiratory failure with hypoxia (principal); J18.9 Pneumonia, unspecified organism; C91.10 Chronic lymphocytic leukemia of B-cell type not having achieved remission; J47.0 Bronchiectasis with acute lower respiratory infection; C61 Malignant neoplasm of prostate; G47.00 Insomnia, unspecified; G89.29 Other chronic pain; R73.9 Hyperglycemia, unspecified; I10 Essential (primary) hypertension; K21.9 Gastro-esophageal reflux disease without esophagitis; Z85.51 Personal history of malignant neoplasm of bladder; Z85.72 Personal history of non-Hodgkin lymphomas; Z86.19 Personal history of other infectious and parasitic diseases; Z87.01 Personal history of pneumonia (recurrent); Z87.891 Personal history of nicotine dependence; Z92.21 Personal history of antineoplastic chemotherapy; Z79.899 Other long term (current) drug therapy
CPT/HCPCS: 36415; 71045; 71250; 80048; 80053; 80069; 83605; 83735; 84145; 85025; 87040; 93005; 96374; 96375; G0378; J0696; J1100; J1650; J2405; J7613; Q0162; J2060